=== PATIENT | female | born 1955 | race Caucasian/White ===

== ENCOUNTER 2021-01-11 04:13 | Inpatient (IN) | payer OTHER ==
[2021-01-11] MEDS ORDERED: GENTAMICIN SO4 80 MG/2 ML VIAL ONE ×2 (10:25→10:26)
[2021-01-11] MEDS ORDERED: THROMBIN (BOVINE) 20,000 UNIT VIAL TP ONE (10:26)
[2021-01-11] MEDS ORDERED: BUPIVACAINE LIPOSOME/PF (EXPAREL) 266 MG/20 ML VIAL ONE (10:28)
[2021-01-11] MEDS ORDERED: LIDOCAINE 1%/EPI 1:100000 (50 ML MULTI DOSE VIAL) ONE (13:51)
[2021-01-11] MEDS ORDERED: BACITRACIN 15 GM TUBE TOPICAL OINTMENT ONE (15:40)
[2021-01-11] MEDS ORDERED: MIDAZOLAM HCL 2 MG/2 ML SINGLE DOSE VIAL ONE (16:12)
[2021-01-11] MEDS ORDERED: fentaNYL CITRATE 250 MCG/5 ML VIAL ONE (16:16)
[2021-01-11] MEDS ORDERED: TRANEXAMIC ACID 1000 MG/10 ML VIAL ONE (16:28)
[2021-01-11] MEDS ORDERED: ceFAZolin SODIUM 1 GM VIAL ONE ×2 (16:29→22:51)
[2021-01-11] MEDS ORDERED: ceFAZolin SODIUM 1 GM VIAL IVPB ONE (16:30)
[2021-01-11] MEDS ORDERED: VANCOMYCIN 1,000 MG VIAL (RESTRICTED TO ID ONLY) IVPB ONE (16:30)
[2021-01-11] MEDS ORDERED: KETAMINE HCL 200 MG/20 ML VIAL ONE (16:45)
[2021-01-11] MEDS ORDERED: BACITRACIN 50,000 UNITS VIAL TP ONE (16:59)
[2021-01-11] MEDS ORDERED: HYDROGEN PEROXIDE 473 ML PO ONE (16:59)
[2021-01-11] MEDS ORDERED: LIDOCAINE 1%/EPI 1:100000 (20 ML MULTI DOSE VIAL) IJ ONE ×2 (16:59→19:00)
[2021-01-11] MEDS ORDERED: GENTAMICIN SO4 80 MG/2 ML VIAL IVPB ONE (16:59)
[2021-01-11] MEDS ORDERED: NEOSTIGMINE METHYLSULFATE 0.5 MG/1 ML - 10 ML MDV ONE (18:30)
[2021-01-11] MEDS ORDERED: ROCURONIUM BROMIDE 50 MG/5 ML SYRINGE ONE (18:54)
[2021-01-11] MEDS ORDERED: BUPIVACAINE LIPOSOME/PF (EXPAREL) 266 MG/20 ML VIAL NR ONE (20:07)
[2021-01-11] MEDS ORDERED: BUPIVACAINE HCL/PF 0.5% (5 MG/ML) 30 ML VIAL IJ ONE (20:07)
[2021-01-11] MEDS ORDERED: THROMBIN (BOVINE) 5,000 UNIT VIAL TP ONE (20:07)
[2021-01-11] MEDS ORDERED: ONDANSETRON 4 MG/2 ML VIAL ONE (20:16)
[2021-01-11] MEDS ORDERED: ALBUTEROL SO4 HFA INHALER IH PRN (20:35)
[2021-01-11] MEDS ORDERED: ONDANSETRON 4 MG/2 ML VIAL IVPUSH PRN ×2 (20:38→20:52)
[2021-01-11] MEDS: LACTATED RINGERS SOLUTION 1,000 ML IV SCH (20:45)
[2021-01-11] MEDS ORDERED: LACTATED RINGERS SOLUTION 1,000 ML IV SCH (21:00)
[2021-01-11] MEDS ORDERED: HYDROmorphone *PCA* 10MG/50ML DISP.SYRIN PCA PRN (21:00)
[2021-01-11] MEDS ORDERED: HYDROmorphone *PCA* 10MG/50ML DISP.SYRIN ONE (21:05)
[2021-01-11] MEDS: CEFAZOLIN 2 GM/D5W 2 GM/50 ML ML IVPB SCH ×2 (23:00)
[2021-01-12 00:04] VITALS: BMI 34.0
[2021-01-12 00:56] LABS: HEMATOCRIT 31.8 % (32.4-45.2); HEMOGLOBIN 10.8 GM/dL (10.7-15.3); LYMPH % 3.4 % (8-40); MCH 30.9 pg (25.7-33.7); MCHC 33.9 g/dl (32.0-36.0); MEAN CELL VOLUME 91.2 fl (80-96); MEAN PLT VOLUME 8.8 fl (7.5-11.1); MONO % 1.2 % (3.8-10.2); NEUT % 95.4 % (42.8-82.8); PLATELET COUNT 159 K/MM3 (134-434); RBC 3.49 M/mm3 (3.60-5.2); RDW 13.2 % (11.6-15.6); WHITE BLOOD COUNT 11.7 K/mm3 (4.0-10.0)
[2021-01-12 01:15] LABS: CALCIUM 8.4 mg/dL (8.5-10.1)
[2021-01-12 01:17] LABS: ALBUMIN 3.3 g/dl (3.4-5.0); BLOOD UREA NITROGEN 17.2 mg/dL (7-18); MAGNESIUM 1.7 mg/dL (1.8-2.4)
[2021-01-12 01:19] LABS: PHOSPHOROUS 4.7 mg/dL (2.5-4.9)
[2021-01-12 01:20] LABS: BILIRUBIN,TOTAL 0.9 mg/dL (0.2-1); TOT PROT 5.9 g/dl (6.4-8.2)
[2021-01-12] MEDS: LACTATED RINGERS SOLUTION 1,000 ML IV SCH ×2 (05:50→21:29)
[2021-01-12 06:04] LABS: ANISOCYTOSIS 0; HELMET CELLS 0; HOWELL-JOLLY BODIES 0; MACROCYTOSIS 0; OVALOCYTE 0; PLATELET ESTIMATE NORMAL; ROULEAU 0; SICKELED CELLS 0; TARGET CELLS 0; TEAR DROP CELLS 0; TOXIC GRANULATION 0
[2021-01-12] MEDS ORDERED: oxyCODONE HCL 5 MG TABLET PO PRN (09:20)
[2021-01-12] MEDS ORDERED: PATIENT'S OWN MEDICATION (NON-FORMULARY) (Diazepam [Diazepam] 10 MG Tablet) PO SCH (10:00)
[2021-01-12] MEDS ORDERED: PCA PUMP NR ONE (10:08)
[2021-01-12] MEDS: oxyCODONE HCL 10 MG SUSTAINED ACTING TABLET PO SCH ×2 (10:14→21:19)
[2021-01-12] MEDS: PANTOPRAZOLE 40 MG TABLET PO SCH (10:15)
[2021-01-12] MEDS ORDERED: DOCUSATE SODIUM 100 MG CAPSULE (FP) PO SCH ×2 (10:15→22:00)
[2021-01-12] MEDS: diazePAM 5 MG TABLET PO SCH (10:15)
[2021-01-12] MEDS: CEFAZOLIN 2 GM/D5W 2 GM/50 ML ML IVPB SCH (10:15)
[2021-01-12] MEDS ORDERED: POLYETHYLENE GLYCOL 3350 119 GM BTL PO PRN (10:15)
[2021-01-12] MEDS: ACETAMINOPHEN 1000 MG/100 ML VIAL (NON FORMULARY) IVPB SCH ×3 (10:16→21:20)
[2021-01-12] MEDS ORDERED: BENZOCAINE/MENTH/CETYLPYRD CL 1 EACH LOZENGE MM PRN (10:19)
[2021-01-12] MEDS ORDERED: KETOROLAC TROMETHAMINE 30 MG/1 ML VIAL IVPUSH ONE (16:11)
[2021-01-12] MEDS: oxyCODONE HCL 5 MG TABLET PO PRN (18:23)
[2021-01-12] MEDS ORDERED: SENNOSIDES 8.6MG TABLET (FP) PO SCH (22:00)
[2021-01-12] MEDS ORDERED: ATORVASTATIN CA 40 MG TABLET (FP) PO SCH (22:00)
[2021-01-13] MEDS ORDERED: PT OWN MED DRAWER 7, Y5N ONE (02:35)
[2021-01-13] MEDS: oxyCODONE HCL 5 MG TABLET PO PRN ×3 (02:36→15:40)
[2021-01-13] MEDS: ACETAMINOPHEN 1000 MG/100 ML VIAL (NON FORMULARY) IVPB SCH (03:01)
[2021-01-13 08:11] LABS: HEMATOCRIT 27.2 % (32.4-45.2); HEMOGLOBIN 9.3 GM/dL (10.7-15.3); LYMPH % 15.6 % (8-40); MCH 30.8 pg (25.7-33.7); MCHC 34.1 g/dl (32.0-36.0); MEAN CELL VOLUME 90.2 fl (80-96); MEAN PLT VOLUME 8.4 fl (7.5-11.1); MONO % 6.6 % (3.8-10.2); NEUT % 77.8 % (42.8-82.8); PLATELET COUNT 142 K/MM3 (134-434); RBC 3.02 M/mm3 (3.60-5.2); RDW 12.9 % (11.6-15.6); WHITE BLOOD COUNT 11.5 K/mm3 (4.0-10.0)
[2021-01-13 08:40] LABS: CALCIUM 8.2 mg/dL (8.5-10.1)
[2021-01-13 08:41] LABS: ALBUMIN 3.1 g/dl (3.4-5.0); BLOOD UREA NITROGEN 13.9 mg/dL (7-18)
[2021-01-13 08:44] LABS: CREATININE 0.7 mg/dL (0.55-1.3); TOT PROT 5.5 g/dl (6.4-8.2)
[2021-01-13 08:45] LABS: BILIRUBIN,TOTAL 1.1 mg/dL (0.2-1)
[2021-01-13] MEDS: oxyCODONE HCL 10 MG SUSTAINED ACTING TABLET PO SCH (09:08)
[2021-01-13] MEDS: PANTOPRAZOLE 40 MG TABLET PO SCH (09:10)
[2021-01-13] MEDS: diazePAM 5 MG TABLET PO SCH (09:11)
[2021-01-13] MEDS ORDERED: oxyCODONE HCL 10 MG SUSTAINED ACTING TABLET PO ONE (12:13)
[2021-01-13 14:38] VITALS: BP 124/73; PULSE 82; TEMP 98.4
[2021-01-13] MEDS ORDERED: LORazepam 1 MG TABLET PO ONE (15:25)
[2021-01-13] MEDS ORDERED: diazePAM 5 MG TABLET PO SCH (22:00)
[2021-01-13] MEDS ORDERED: oxyCODONE HCL 10 MG SUSTAINED ACTING TABLET PO SCH (22:00)
== END 2021-01-13 18:02 | DRG 453 ==
LOC: J2C 04:13 → J8W 23:51
PROVIDERS: ADMIT Orthopaedic Surgery Orthopaedic Surgery of the Spine; ATTEND Nurse Practitioner Acute Care
PROC: 01N10ZZ Release Cervical Nerve, Open Approach (ICD-10-PCS; 2021-01-11)
PROC: 00NW0ZZ Release Cervical Spinal Cord, Open Approach (ICD-10-PCS; 2021-01-11)
PROC: 0RB30ZZ Excision of Cervical Vertebral Disc, Open Approach (ICD-10-PCS; 2021-01-11)
PROC: 0RG2071 Fusion of 2 or more Cervical Vertebral Joints with Autologous Tissue Substitute, Posterior Approach, Posterior Column, Open Approach (ICD-10-PCS; principal; 2021-01-11 11:00)
PROC: 0RG20A0 Fusion of 2 or more Cervical Vertebral Joints with Interbody Fusion Device, Anterior Approach, Anterior Column, Open Approach (ICD-10-PCS; 2021-01-11 11:00)
DX: M48.02 Spinal stenosis, cervical region (principal); G95.19 Other vascular myelopathies; M47.12 Other spondylosis with myelopathy, cervical region; K21.9 Gastro-esophageal reflux disease without esophagitis; E78.5 Hyperlipidemia, unspecified; J45.909 Unspecified asthma, uncomplicated; F41.9 Anxiety disorder, unspecified; M54.12 Radiculopathy, cervical region; M40.202 Unspecified kyphosis, cervical region
CPT/HCPCS: 36415; 72125-TC; 80053; 83036; 83735; 84100; 85025; 86850; 86900; 86901; 86922; 94010; 94760; 97116-GP; 97161-GP; C9803; J0131; U0003; U0005

== ENCOUNTER 2022-01-04 15:52 | Inpatient (IN) | payer OTHER ==
[2022-01-04] MEDS ORDERED: ASPIRIN 325 MG TABLET PO ONE (16:39)
[2022-01-04] MEDS ORDERED: ATORVASTATIN CA 80 MG TABLET (FP) PO ONE (17:21)
[2022-01-04] MEDS ORDERED: ASPIRIN 325 MG TABLET ONE (17:23)
[2022-01-04 18:27] LABS: BASO % 0.3 % (0-2.0); EOS % 0.5 % (0-4.5); HEMATOCRIT 35.3 % (32.4-45.2); HEMOGLOBIN 12.1 GM/dL (10.7-15.3); LYMPH % 33.8 % (8-40); MCH 30.7 pg (25.7-33.7); MCHC 34.3 g/dl (32.0-36.0); MEAN CELL VOLUME 89.6 fl (80-96); MONO % 6.5 % (3.8-10.2); NEUT % 58.9 % (42.8-82.8); PLATELET COUNT 184 10^3/uL (134-434); RBC 3.94 M/mm3 (3.60-5.2); RDW 13.2 % (11.6-15.6); WHITE BLOOD COUNT 6.1 K/mm3 (4.0-10.0)
[2022-01-04 18:28] LABS: URINE APPEARANCE CLEAR; URINE BILIRUBIN NEGATIVE (NEGATIVE); URINE COLOR YELLOW; URINE GLUCOSE (UA) NEGATIVE (NEGATIVE); URINE KETONE NEGATIVE (NEGATIVE); URINE LEUK ESTERASE NEGATIVE (NEGATIVE); URINE NITRITE NEGATIVE (NEGATIVE); URINE PROTEIN NEGATIVE (NEGATIVE); URINE UROBILINOGEN 0.2 mg/dL (0.2-1.0)
[2022-01-04 18:35] LABS: INR 1.09 (0.83-1.09); PROTHROMBIN TIME (PATIENT) 12.5 SEC (9.7-13.0)
[2022-01-04 18:38] LABS: ACTIVATED PTT 31.4 SECONDS (25.2-36.5)
[2022-01-04 18:46] LABS: CALCIUM 8.9 mg/dL (8.5-10.1)
[2022-01-04 18:47] LABS: ALBUMIN 3.6 g/dl (3.4-5.0); BLOOD UREA NITROGEN 14.8 mg/dL (7-18)
[2022-01-04 18:50] LABS: CREATININE 0.8 mg/dL (0.55-1.3)
[2022-01-04 18:51] LABS: BILIRUBIN,TOTAL 0.9 mg/dL (0.2-1); TOT PROT 6.4 g/dl (6.4-8.2)
[2022-01-04] MEDS ORDERED: ATORVASTATIN CA 80 MG TABLET (FP) ONE (19:25)
[2022-01-04] MEDS ORDERED: ACETAMINOPHEN 1000 MG/100 ML BAG IVPB ONE (20:49)
[2022-01-04] MEDS ORDERED: ALBUTEROL SO4 HFA INHALER IH PRN (20:55)
[2022-01-04] MEDS ORDERED: PATIENT'S OWN MEDICATION (NON-FORMULARY) (Famotidine 40 MG Tablet) PO SCH (22:00)
[2022-01-04] MEDS ORDERED: ATORVASTATIN CA 80 MG TABLET (FP) PO SCH (22:00)
[2022-01-04] MEDS ORDERED: rOPINIRole HCL 0.5 MG TABLET PO SCH (22:00)
[2022-01-04 23:24] VITALS: BMI 32.9
[2022-01-05] MEDS: ACETAMINOPHEN 1000 MG/100 ML BAG IVPB PRN ×3 (00:05→13:28)
[2022-01-05 07:00] LABS: BLOOD UREA NITROGEN 14.2 mg/dL (7-18)
[2022-01-05 07:01] LABS: ALBUMIN 3.4 g/dl (3.4-5.0); MAGNESIUM 2.4 mg/dL (1.8-2.4)
[2022-01-05 07:04] LABS: CREATININE 0.7 mg/dL (0.55-1.3)
[2022-01-05 07:05] LABS: BILIRUBIN,TOTAL 1.4 mg/dL (0.2-1); PHOSPHOROUS 3.9 mg/dL (2.5-4.9); TOT PROT 6.1 g/dl (6.4-8.2)
[2022-01-05 08:06] LABS: BASO % 0.4 % (0-2.0); EOS % 1.2 % (0-4.5); HEMATOCRIT 34.9 % (32.4-45.2); HEMOGLOBIN 11.9 GM/dL (10.7-15.3); LYMPH % 39.7 % (8-40); MCH 30.8 pg (25.7-33.7); MCHC 34.1 g/dl (32.0-36.0); MEAN CELL VOLUME 90.5 fl (80-96); MEAN PLT VOLUME 7.8 fl (7.5-11.1); MONO % 7.7 % (3.8-10.2); PLATELET COUNT 167 10^3/uL (134-434); RBC 3.86 M/mm3 (3.60-5.2); RDW 13.5 % (11.6-15.6); WHITE BLOOD COUNT 4.6 K/mm3 (4.0-10.0)
[2022-01-05] MEDS: ENOXAPARIN NA (PORCINE) 60 MG/0.6 ML DISP.SYRIN SQ SCH (09:30)
[2022-01-05] MEDS: ASPIRIN COATED 81 MG TABLET.EC PO SCH (09:31)
[2022-01-05] MEDS ORDERED: oxyCODONE HCL 5 MG TABLET PO ONE (21:01)
[2022-01-05] MEDS: ATORVASTATIN CA 80 MG TABLET (FP) PO SCH (21:29)
[2022-01-05] MEDS: oxyCODONE HCL 5 MG TABLET PO PRN (21:30)
[2022-01-05] MEDS: rOPINIRole HCL 0.5 MG TABLET PO SCH (21:31)
[2022-01-05] MEDS ORDERED: FAMOTIDINE 20 MG TABLET PO SCH (22:00)
[2022-01-06 08:06] LABS: BASO % 0.2 % (0-2.0); EOS % 0.1 % (0-4.5); HEMATOCRIT 38.8 % (32.4-45.2); HEMOGLOBIN 13.1 GM/dL (10.7-15.3); LYMPH % 24.1 % (8-40); MCH 30.5 pg (25.7-33.7); MCHC 33.8 g/dl (32.0-36.0); MEAN CELL VOLUME 90.1 fl (80-96); MEAN PLT VOLUME 8.1 fl (7.5-11.1); MONO % 5.9 % (3.8-10.2); NEUT % 69.7 % (42.8-82.8); PLATELET COUNT 184 10^3/uL (134-434); RBC 4.31 M/mm3 (3.60-5.2); RDW 13.3 % (11.6-15.6); WHITE BLOOD COUNT 8.6 K/mm3 (4.0-10.0)
[2022-01-06 08:07] LABS: CALCIUM 9.2 mg/dL (8.5-10.1)
[2022-01-06 08:08] LABS: BLOOD UREA NITROGEN 18.9 mg/dL (7-18)
[2022-01-06 08:11] LABS: CREATININE 0.6 mg/dL (0.55-1.3)
[2022-01-06] MEDS: ENOXAPARIN NA (PORCINE) 60 MG/0.6 ML DISP.SYRIN SQ SCH (09:01)
[2022-01-06] MEDS: ASPIRIN COATED 81 MG TABLET.EC PO SCH (09:02)
[2022-01-06] MEDS: PANTOPRAZOLE 40 MG TABLET PO SCH (09:04)
[2022-01-06] MEDS ORDERED: ACETAMINOPHEN 500 MG TABLET (FP) PO PRN (19:30)
[2022-01-06] MEDS: rOPINIRole HCL 0.5 MG TABLET PO SCH (21:26)
[2022-01-06] MEDS: oxyCODONE HCL 5 MG TABLET PO PRN (21:26)
[2022-01-06] MEDS: ATORVASTATIN CA 80 MG TABLET (FP) PO SCH (21:26)
[2022-01-07] MEDS: PANTOPRAZOLE 40 MG TABLET PO SCH (10:59)
[2022-01-07] MEDS: ASPIRIN COATED 81 MG TABLET.EC PO SCH (10:59)
[2022-01-07] MEDS: ENOXAPARIN NA (PORCINE) 60 MG/0.6 ML DISP.SYRIN SQ SCH (10:59)
[2022-01-07 14:57] VITALS: BP 119/56; PULSE 71; TEMP 98.2
== END 2022-01-07 18:05 | disposition home or self-care (01) | DRG 74 ==
LOC: JER 15:52 → JERBED 17:12 → J4S 22:46
PROVIDERS: ADMIT Internal Medicine
DX: M54.12 Radiculopathy, cervical region (principal); G45.9 Transient cerebral ischemic attack, unspecified; G81.94 Hemiplegia, unspecified affecting left nondominant side; E78.5 Hyperlipidemia, unspecified; R47.81 Slurred speech; R26.81 Unsteadiness on feet; I25.10 Atherosclerotic heart disease of native coronary artery without angina pectoris; Z98.84 Bariatric surgery status; E66.9 Obesity, unspecified; Z68.32 Body mass index [BMI] 32.0-32.9, adult; G25.81 Restless legs syndrome; G62.9 Polyneuropathy, unspecified; R29.810 Facial weakness; J45.909 Unspecified asthma, uncomplicated; G43.909 Migraine, unspecified, not intractable, without status migrainosus
CPT/HCPCS: 0241U-QW; 36415; 70450-TC; 70551-TC; 80048; 80053; 80061; 81003; 82607; 82746; 83036; 83735; 84100; 84443; 84484; 85025; 85610; 85730; 86618; 93005; 93010; 93306-TC; 93880-TC; 97116-GP; 97162-GP; 99285-25